=== PATIENT | male | born 1995 | race American Indian/Alaskan Native ===

== ENCOUNTER 2020-11-30 07:24 | Inpatient (IN) | payer SELFPAY ==
[2020-11-30] MEDS ORDERED: predniSONE 20 MG TAB PO ONE (09:09)
[2020-11-30] MEDS ORDERED: ALBUTEROL 2.5 MG/3 ML NEBU IH ONE (09:10)
[2020-11-30] MEDS ORDERED: IPRATROPIUM 0.02% NEBU 2.5 ML IH ONE (09:10)
--- NOTE | 2020-11-30 09:34 | Emergency Department Report ---
HPI - General Chief Complaint: Adult Asthma - HPI HPI: This is a 24-year-old -[place] male presents to the emergency department with complaint of a 2-day history of a mixed dry and productive cough, wheezing, shortness of breath. Patient says that he feels like he got a "cold" that exacerbated his asthma. He has been using his albuterol inhaler without any relief. He does not have a nebulizer machine to use. He denies any tobacco use. No recent travel or sick contacts at home. He denies any fever, chest pain, lower extremity swelling, nausea, vomiting or diaphoresis. He denies any known exposure to anyone with COVID-19. He is not vaccinated against COVID-19. ED Past Medical Hx - Past Medical History Hx Asthma: Yes - Surgical History Past Surgical History?: No ED Review of Systems ROS: Stated complaint: SOB Other details as noted in HPI Comment: All other systems reviewed and negative Constitutional: denies: chills, fever Eyes: denies: eye pain, vision change ENT: denies: ear pain, throat pain Respiratory: cough, shortness of breath, wheezing Cardiovascular: denies: chest pain, palpitations Gastrointestinal: denies: abdominal pain, vomiting Genitourinary: denies: dysuria, discharge Musculoskeletal: denies: joint swelling, arthralgia Skin: denies: rash, lesions Neurological: denies: headache, weakness Physical Exam - Physical Exam Vital Signs: Vital Signs 11/30/20 07:47 Temperature 98.4 F Pulse Rate 86 Respiratory 22 Rate Blood Pressure 143/87 O2 Sat by Pulse 91 Oximetry Physical Exam: GENERAL: The patient is well-developed well-nourished. HENT: Normocephalic. Atraumatic. Patient has moist mucous membranes. EYES: Extraocular motions are intact. NECK: Supple. Trachea is midline. CHEST/LUNGS: Moderate wheezing throughout the chest. There is tachypnea but no accessory muscle use. HEART/CARDIOVASCULAR: Regular. There is no tachycardia. There is no murmur. ABDOMEN: Abdomen is soft, nontender. Patient has normal bowel sounds. SKIN: Skin is warm and dry. NEURO: The patient is awake, alert, and oriented. The patient is cooperative. The patient has no focal neurologic deficits. Normal speech. MUSCULOSKELETAL: There is no tenderness or deformity. There is no limitation range of motion. ED Course Vital Signs 11/30/20 07:47 Temperature 98.4 F Pulse Rate 86 Respiratory 22 Rate Blood Pressure 143/87 O2 Sat by Pulse 91 Oximetry ED Medical Decision Making - Lab Data Result diagrams: 11/30/20 09:23 11/30/20 09:23 Lab Results 11/30/20 11/30/20 Range/Units 09:23 09:23 WBC 9.4 (4.5-11.0) K/mm3 RBC 5.56 H (3.65-5.03) M/mm3 Hgb 16.8 H (11.8-15.2) gm/dl Hct 49.2 H (35.5-45.6) % MCV 89 (84-94) fl MCH 30 (28-32) pg MCHC 34 (32-34) % RDW 13.9 (13.2-15.2) % Plt Count 300 (140-440) K/mm3 Lymph % (Auto) 13.1 L (13.4-35.0) % [place] % (Auto) 9.9 H (0.0-7.3) % Eos % (Auto) 7.8 H (0.0-4.3) % Baso % (Auto) 0.4 (0.0-1.8) % Lymph # (Auto) 1.2 (1.2-5.4) K/mm3 [place] # (Auto) 0.9 H (0.0-0.8) K/mm3 Eos # (Auto) 0.7 H (0.0-0.4) K/mm3 Baso # (Auto) 0.0 (0.0-0.1) K/mm3 Seg Neutrophils % 68.8 (40.0-70.0) % Seg Neutrophils # 6.4 (1.8-7.7) K/mm3 Sodium 142 (137-145) mmol/L Potassium 4.1 (3.6-5.0) mmol/L Chloride 104.0 (98-107) mmol/L Carbon Dioxide 28 (22-30) mmol/L Anion Gap 14 mmol/L BUN 10 (9-20) mg/dL Creatinine 1.0 (0.8-1.3) mg/dL Estimated GFR > 60 ml/min BUN/Creatinine Ratio 10 % Glucose 90 (75-100) mg/dL Calcium 10.0 (8.4-10.2) mg/dL - Radiology Data Radiology results: image reviewed interpreted by me: Chest x-ray does not show any acute process. There are no pleural effusions, obvious pneumonia and there is no pneumothorax. No widened mediastinum. - Medical Decision Making This patient presents with a 2-day history of some cold-like symptoms, shortness of breath, wheezing that he believes is his asthma, and the patient presents through triage with a room air pulse ox of 91%. The patient was placed on droplet precautions and patient isolation as a PUI. He was given steroids, and a prolonged breathing treatment with albuterol and Atrovent. He was given oral prednisone. Upon reevaluation the patient still sounds very tight and his room air pulse ox is now 89%. An IV was placed and the patient was given some IV fluid resuscitation and IV magnesium. Covid labs have been ordered and 2 of the inflammatory markers have come back elevated including CRP and LDH. The patient will be admitted to the hospital for further evaluation and treatment was accepted for admission by the hospitalist, Dr. Benjamin. Critical Care Time: Yes Critical care time in (mins) excluding proc time.: 31 Critical care attestation.: If time is entered above; I have spent that time in minutes in the direct care of this critically ill patient, excluding procedure time. Critical care time was spent on this patient during his initial evaluation, multiple reevaluations, ordering and interpretation of labs and imaging, supplemental oxygen for his hypoxia, breathing treatments for his bronchospasm, multiple discussions with the patient. Critical Care Time: 31 minutes ED Disposition Clinical Impression: Asthma exacerbation, Hypoxia, Suspected 2019 novel coronavirus infection Disposition: OP ADMIT IP TO THIS HOSP Is pt being admited?: Yes Condition: Serious Time of Disposition: 13:14
[2020-11-30 09:59] LABS: Basophils % (Auto) 0.4 % (0.0-1.8); Eosinophils # (Auto) 0.7 K/mm3 (0.0-0.4); Eosinophils % (Auto) 7.8 % (0.0-4.3); Hematocrit 49.2 % (35.5-45.6); Hemoglobin 16.8 gm/dl (11.8-15.2); Lymphocytes # (Auto) 1.2 K/mm3 (1.2-5.4); Lymphocytes % (Auto) 13.1 % (13.4-35.0); Mean Corpuscular HGB Conc 34 % (32-34); Mean Corpuscular Volume 89 fl (84-94); Monocytes # (Auto) 0.9 K/mm3 (0.0-0.8); Monocytes % (Auto) 9.9 % (0.0-7.3); Platelet Count 300 K/mm3 (140-440); Red Blood Count 5.56 M/mm3 (3.65-5.03); Red Cell Distribution Width 13.9 % (13.2-15.2)
--- NOTE | 2020-11-30 10:02 | XRay Report ---
CHEST 1 VIEW 11/30/2020 9:50 AM INDICATION / CLINICAL INFORMATION: SOB. COMPARISON: None available. FINDINGS: SUPPORT DEVICES: None. HEART / MEDIASTINUM: No significant abnormality. LUNGS / PLEURA: No significant pulmonary or pleural abnormality. No pneumothorax. ADDITIONAL FINDINGS: No significant additional findings. IMPRESSION: 1. No acute findings. Signer Name: Jerson Terry DO Signed: 11/30/2020 9:58 AM Workstation Name: [id number]
[2020-11-30 10:43] LABS: BUN/Creatinine Ratio 10; Blood Urea Nitrogen 10 mg/dL (9-20); Hemolysis Index 15
[2020-11-30] MEDS ORDERED: MAGNESIUM SULFATE 1 GM in SODIUM CHLORIDE 0.9% 50 ML IV ONE (11:46)
[2020-11-30] MEDS ORDERED: SODIUM CHLORIDE 0.9% 1000 ML 1,000 ML IV ONE (11:46)
--- NOTE | 2020-11-30 12:00 | History and Physical Report ---
History of Present Illness Chief complaint: I cannot stop coughing History of present illness: 24 YO Male with Asthma, HTN presents to ED for evaluation. Patient reports "I have been coughing for a week". Patient states that he has experienced generalized weakness, shortness of breath, fatigue, malaise, muscle aches over the past 1 week with progressively worsening symptoms over the same timeframe. Patient states that his symptoms have not been relieved with increased nebulizer therapy. Patient transported to [facility] via private vehicle for further care and evaluation of the aforementioned symptoms. The patient was seen and evaluated in the emergency department. All lab and imaging studies reviewed. The patient was found to have a pulse oximetry of 86% on room air which is consistent with acute hypoxemic respiratory failure. The patient also found to have clinical symptoms consistent with acute bronchitis. Patient admitted to medical floor and initiated on coronavirus protocol. Patient denies fever, chills, chest pain, palpitation, skin rash, recent ill contacts, or known exposure to COVID- 19. No prior admission for review. No medication listed at time of admission for reconciliation. He is not vaccinated against COVID-19. Past History Past Medical History: other (See HPI) Past Surgical History: No surgical history, Other (Reviewed) Social history: single. denies: smoking, alcohol abuse, prescription drug abuse Family history: diabetes, hypertension Medications and Allergies Allergies Allergy/AdvReac Type Severity Reaction Status Date / Time No Known Allergies Allergy Unverified 11/30/20 07:45 Active Meds: Active Medications Magnesium Sulfate 1 gm/ Sodium (Chloride) 52 mls @ 52 mls/hr IV ONCE ONE Stop: 11/30/20 12:45 Sodium Chloride (Nacl 0.9% 1000 Ml) 1,000 mls @ 125 mls/hr IV ONCE ONE Stop: 11/30/20 19:45 Review of Systems Constitutional: fatigue, weakness, malaise, no weight loss, no weight gain, no fever, no chills Ears, nose, mouth and throat: no ear pain, no nose pain, no nasal discharge Cardiovascular: no chest pain, no palpitations, no edema Respiratory: cough, shortness of breath, no congestion, no wheezing, no pleurisy Gastrointestinal: no nausea, no vomiting, no diarrhea, no constipation Genitourinary Male: no hematuria, no flank pain, no discharge, no urinary frequency, no urinary hesitancy Rectal: no pain, no incontinence, no bleeding Musculoskeletal: no neck stiffness, no neck pain, no shooting arm pain, no arm numbness/tingling, no low back pain, no leg numbness/tingling Integumentary: no rash, no pruritis, no sores, no wounds, no jaundice Neurological: no head injury, no paralysis, no weakness, no parathesias, no numbness, no tingling, no syncope Psychiatric: no anxiety, no memory loss, no change in sleep habits, no insomnia, no change in libido, no suicidal ideation Endocrine: no cold intolerance, no polyphagia, no polydipsia, no polyuria, no excessive sweating, no flushing Hematologic/Lymphatic: no easy bruising, no easy bleeding, no lymphadenopathy Allergic/Immunologic: no urticaria, no wheezing Exam - Constitutional Vitals: Temp Pulse Resp BP Pulse Ox 99.0 F 95 H 18 149/81 89 11/30/20 11:46 11/30/20 11:46 11/30/20 11:46 11/30/20 11:46 11/30/20 11:46 General appearance: Present: mild distress - EENT Eyes: Present: PERRL ENT: hearing intact, clear oral mucosa - Neck Neck: Present: supple, normal ROM - Respiratory Respiratory effort: normal, labored, accessory muscle use Respiratory: bilateral: diminished, rhonchi - Cardiovascular Heart Sounds: Present: S1 & S2. Absent: rub, click - Extremities Extremities: pulses symmetrical, No edema Peripheral Pulses: within normal limits - Abdominal General gastrointestinal: Present: soft, non-tender, non-distended, normal bowel sounds Male genitourinary: Present: normal - Integumentary Integumentary: Present: clear, warm, dry - Musculoskeletal Musculoskeletal: gait normal, strength equal bilaterally - Psychiatric Psychiatric: appropriate mood/affect, intact judgment & insight - Neurologic Neurologic: CNII-XII intact, moves all extremities Results - Labs CBC & Chem 7: 11/30/20 09:23 11/30/20 09:23 Labs: Abnormal lab results 11/30/20 Range/Units 09:23 RBC 5.56 H (3.65-5.03) M/mm3 Hgb 16.8 H (11.8-15.2) gm/dl Hct 49.2 H (35.5-45.6) % Lymph % (Auto) 13.1 L (13.4-35.0) % [place] % (Auto) 9.9 H (0.0-7.3) % Eos % (Auto) 7.8 H (0.0-4.3) % [place] # (Auto) 0.9 H (0.0-0.8) K/mm3 Eos # (Auto) 0.7 H (0.0-0.4) K/mm3 Assessment and Plan - Patient Problems (1) Acute hypoxemic respiratory failure Current Visit: Yes Status: Acute Plan to address problem: Chest x-ray, supplemental oxygen, pulse oximetry, nebulizer therapy, (2) Acute bronchitis Current Visit: Yes Status: Acute Qualifiers: Bronchitis organism: unspecified organism Qualified Code(s): J20.9 - Acute bronchitis, unspecified Plan to address problem: Supplemental oxygen, pulse oximetry, nebulizer therapy, IV steroid therapy, supportive care. (3) Suspected 2019 novel coronavirus infection Current Visit: Yes Status: Acute Plan to address problem: Coronavirus protocol: IV antibiotic therapy, IV steroid therapy, supplemental oxygen, pulse oximetry, nebulizer therapy, vitamin C therapy, vitamin D therapy, zinc therapy, prophylactic anticoagulation (4) DVT prophylaxis Current Visit: Yes Status: Acute Plan to address problem: SCD to bilateral lower extremities while in bed, prophylactic anticoagulation
[2020-11-30] MEDS ORDERED: ONDANSETRON 4 MG/2 ML INJ IV PRN (12:05)
[2020-11-30] MEDS ORDERED: ACETAMINOPHEN 325 MG TAB PO PRN (12:05)
[2020-11-30] MEDS ORDERED: HYDROmorphone 1 MG/1 ML INJ IV PRN (12:17)
[2020-11-30] MEDS ORDERED: oxyCODONE /ACETAMINOPHEN 5-325MG TAB PO PRN (12:17)
[2020-11-30] MEDS ORDERED: MAGNESIUM SULFATE 2 GM/50 ML BAG IV ONE (12:22)
[2020-11-30 13:08] LABS: C-Reactive Protein 4.6 mg/dL (0.00-1.30)
[2020-11-30] MEDS: ALBUTEROL 2.5 MG/3 ML NEBU IH PRN (21:15)
[2020-12-01] MEDS: FAMOTIDINE 10 MG TAB PO SCH ×3 (00:05→23:14)
[2020-12-01 06:22] LABS: Basophils # (Auto) 0.1 K/mm3 (0.0-0.1); Basophils % (Auto) 0.4 % (0.0-1.8); Eosinophils # (Auto) 0.1 K/mm3 (0.0-0.4); Eosinophils % (Auto) 0.6 % (0.0-4.3); Hematocrit 46.5 % (35.5-45.6); Hemoglobin 15.6 gm/dl (11.8-15.2); Lymphocytes # (Auto) 1.4 K/mm3 (1.2-5.4); Lymphocytes % (Auto) 9.5 % (13.4-35.0); Mean Corpuscular HGB Conc 34 % (32-34); Mean Corpuscular Volume 88 fl (84-94); Monocytes # (Auto) 1.4 K/mm3 (0.0-0.8); Monocytes % (Auto) 9.6 % (0.0-7.3); Platelet Count 313 K/mm3 (140-440); Red Cell Distribution Width 14.2 % (13.2-15.2)
[2020-12-01 06:46] LABS: Alanine Aminotransferase 20 units/L (7-56); Albumin 4.7 g/dL (3.9-5); BUN/Creatinine Ratio 7; Blood Urea Nitrogen 7 mg/dL (9-20); Calcium 9.8 mg/dL (8.4-10.2); Hemolysis Index 13
--- NOTE | 2020-12-01 09:43 | Progress Note ---
Assessment and Plan Assessment and plan: Acute hypoxic respiratory failure Acute bronchitis Suspected COVID-19 infection DVT prophylaxis 12/01/2020. Start Solu-Medrol 40 mg IV every 8 hours for now. Await Covid testing. Start empiric antibiotics for bronchitis. Follow-up inflammatory markers. Consider ID consultation O2 supplementation to maintain sats greater than 92% History Interval history: No new issues overnight. Hospitalist Physical - Constitutional Vitals: Temp Pulse Resp BP Pulse Ox 99.0 F 95 H 18 149/81 89 11/30/20 11:46 11/30/20 11:46 11/30/20 11:46 11/30/20 11:46 11/30/20 11:46 General appearance: Present: mild distress - EENT Eyes: Present: PERRL, EOM intact ENT: hearing intact, clear oral mucosa, dentition normal - Neck Neck: Present: supple, normal ROM - Respiratory Respiratory effort: normal Respiratory: bilateral: CTA - Cardiovascular Rhythm: regular Heart Sounds: Present: S1 & S2. Absent: gallop, rub - Extremities Extremities: no ischemia, No edema, Full ROM - Abdominal General gastrointestinal: soft, non-tender, non-distended, normal bowel sounds - Integumentary Integumentary: Present: clear, warm, dry - Neurologic Neurologic: CNII-XII intact, moves all extremities Results - Labs CBC & Chem 7: 12/01/20 05:14 12/01/20 05:14 Labs: Laboratory Last Values WBC 14.8 K/mm3 (4.5-11.0) H 12/01/20 05:14 RBC 5.30 M/mm3 (3.65-5.03) H 12/01/20 05:14 Hgb 15.6 gm/dl (11.8-15.2) H 12/01/20 05:14 Hct 46.5 % (35.5-45.6) H 12/01/20 05:14 MCV 88 fl (84-94) 12/01/20 05:14 MCH 29 pg (28-32) 12/01/20 05:14 MCHC 34 % (32-34) 12/01/20 05:14 RDW 14.2 % (13.2-15.2) 12/01/20 05:14 Plt Count 313 K/mm3 (140-440) 12/01/20 05:14 Lymph % (Auto) 9.5 % (13.4-35.0) L 12/01/20 05:14 [place] % (Auto) 9.6 % (0.0-7.3) H 12/01/20 05:14 Eos % (Auto) 0.6 % (0.0-4.3) 12/01/20 05:14 Baso % (Auto) 0.4 % (0.0-1.8) 12/01/20 05:14 Lymph # (Auto) 1.4 K/mm3 (1.2-5.4) 12/01/20 05:14 [place] # (Auto) 1.4 K/mm3 (0.0-0.8) H 12/01/20 05:14 Eos # (Auto) 0.1 K/mm3 (0.0-0.4) 12/01/20 05:14 Baso # (Auto) 0.1 K/mm3 (0.0-0.1) 12/01/20 05:14 Seg Neutrophils % 79.9 % (40.0-70.0) H 12/01/20 05:14 Seg Neutrophils # 11.9 K/mm3 (1.8-7.7) H 12/01/20 05:14 D-Dimer < 135.00 ng/mlDDU (0-234) 11/30/20 12:07 Sodium 141 mmol/L (137-145) 12/01/20 05:14 Potassium 4.4 mmol/L (3.6-5.0) 12/01/20 05:14 Chloride 101.3 mmol/L (98-107) 12/01/20 05:14 Carbon Dioxide 26 mmol/L (22-30) 12/01/20 05:14 Anion Gap 18 mmol/L 12/01/20 05:14 BUN 7 mg/dL (9-20) L 12/01/20 05:14 Creatinine 1.0 mg/dL (0.8-1.3) 12/01/20 05:14 Estimated GFR > 60 ml/min 12/01/20 05:14 BUN/Creatinine Ratio 7 % 12/01/20 05:14 Glucose 112 mg/dL (75-100) H 12/01/20 05:14 Calcium 9.8 mg/dL (8.4-10.2) 12/01/20 05:14 Ferritin 286.1 ng/mL (30.0-300.0) 11/30/20 12:07 Total Bilirubin 0.60 mg/dL (0.1-1.2) 12/01/20 05:14 AST 20 units/L (5-40) 12/01/20 05:14 ALT 20 units/L (7-56) 12/01/20 05:14 Alkaline Phosphatase 81 units/L (35-129) 12/01/20 05:14 Lactate Dehydrogenase 235 units/L (91-180) H 11/30/20 12:07 C-Reactive Protein 4.60 mg/dL (0.00-1.30) H 11/30/20 12:07 Total Protein 7.1 g/dL (6.3-8.2) 12/01/20 05:14 Albumin 4.7 g/dL (3.9-5) 12/01/20 05:14 Albumin/Globulin Ratio 2.0 % 12/01/20 05:14 Procalcitonin 0.07 ng/mL (<0.15) 11/30/20 12:07 Active Medications - Current Medications Current Medications: Generic Name Dose Route Start Last Admin Trade Name Freq PRN Reason Stop Dose Admin Acetaminophen 650 mg 11/30/20 12:05 Acetaminophen 325 Mg Tab PO Q4H PRN Pain MILD(1-3)/Fever >100.5/CHAVEZ Albuterol 2.5 mg 11/30/20 12:05 11/30/20 21:15 Albuterol 2.5 Mg/3 Ml Nebu IH 2.5 mg Q4HRT PRN Administration Shortness Of Breath Famotidine 10 mg 11/30/20 22:00 12/01/20 00:05 Famotidine 10 Mg Tab PO 10 mg BID BETTY Administration Hydromorphone HCl 0.5 mg 11/30/20 12:17 Hydromorphone 1 Mg/1 Ml Inj IV Q12H PRN Pain , Severe (7-10) Ondansetron HCl 4 mg 11/30/20 12:05 Ondansetron 4 Mg/2 Ml Inj IV Q8H PRN Nausea And Vomiting Oxycodone/Acetaminophen 1 tab 11/30/20 12:17 Oxycodone /Acetaminophen 5-325mg Tab PO Q12H PRN Pain, Moderate (4-6) Sodium Chloride 10 ml 11/30/20 22:00 12/01/20 00:05 Sodium Chloride 0.9% 10 Ml Flush Syringe IV 10 ml BID BETTY Administration Sodium Chloride 10 ml 11/30/20 12:05 Sodium Chloride 0.9% 10 Ml Flush Syringe IV PRN PRN LINE FLUSH
[2020-12-01] MEDS ORDERED: cefTRIAXone/NS 1 GM/50 ML 1 GM/50 ML BAG IV SCH (10:00)
[2020-12-01] MEDS: cefTRIAXone/NS 2 GM/100 ML 2 GM/100 ML BAG IV SCH (12:38)
[2020-12-01] MEDS: methylPREDNISolone Sod Succinate 40 MG/1 ML INJ IV SCH ×2 (13:52→23:14)
[2020-12-02 05:09] LABS: BUN/Creatinine Ratio 11; Blood Urea Nitrogen 10 mg/dL (9-20); Calcium 9.2 mg/dL (8.4-10.2); Hemolysis Index 22
[2020-12-02] MEDS: methylPREDNISolone Sod Succinate 40 MG/1 ML INJ IV SCH ×2 (05:36→13:13)
[2020-12-02 05:45] LABS: Basophils % (Auto) 0.2 % (0.0-1.8); Hematocrit 46.1 % (35.5-45.6); Hemoglobin 15.4 gm/dl (11.8-15.2); Lymphocytes # (Auto) 0.9 K/mm3 (1.2-5.4); Lymphocytes % (Auto) 7.2 % (13.4-35.0); Mean Corpuscular HGB Conc 33 % (32-34); Mean Corpuscular Volume 87 fl (84-94); Monocytes # (Auto) 0.5 K/mm3 (0.0-0.8); Monocytes % (Auto) 3.9 % (0.0-7.3); Platelet Count 366 K/mm3 (140-440); Red Blood Count 5.31 M/mm3 (3.65-5.03)
[2020-12-02] MEDS: ALBUTEROL 2.5 MG/3 ML NEBU IH PRN (05:53)
--- NOTE | 2020-12-02 08:08 | Discharge Summary ---
Providers - Providers Date of Admission: 11/30/20 12:05 Date of discharge: 12/02/20 Attending physician: WANDA MANCILLA Primary care physician: [facility] Hospitalization Reason for admission: sob Condition: Serious Hospital course: 24 YO Male with Asthma, HTN presents to ED for evaluation of generalized weakness, shortness of breath, fatigue, malaise, muscle aches over the past 1 week with progressively worsening symptoms over the same timeframe. Patient stated that his symptoms did not improve with increased nebulizer therapy. Andrea grewal transported to [facility] via private vehicle for further care and evaluation of the aforementioned symptoms. The patient was seen and evaluated in the emergency department. All lab and imaging studies reviewed. The patient was found to have a pulse oximetry of 86% on room air. The patient was admitted with diagnosis of acute hypoxemic respiratory failure secondary to acute asthma exacerbation and suspected COVID-19 pneumonia. The patient was treated with oxygen supplementation, bronchodilators/nebulizers and IV steroids. Patient had COVID-19 PCR that was found to be negative and chest x-ray that was negative with no evidence of pneumonia. Patient has significant improvement in respiratory failure and return back to baseline respiratory status. Patient is felt to receive maximal hospital benefit and will be discharged home. Dedicated discharge time 35 minutes. Disposition: DC-01 TO HOME OR SELFCARE Final Discharge Diagnosis (Prints w/discharge instructions): Acute hypoxic respiratory failure, acute asthma exacerbation Core Measure Documentation - Palliative Care Palliative Care/ Comfort Measures: Not Applicable - Core Measures Any of the following diagnoses?: none Exam - Constitutional Vitals: Temp Pulse Resp BP Pulse Ox 99.6 F 90 22 114/70 91 12/02/20 04:42 12/02/20 05:53 12/02/20 05:53 12/02/20 04:42 12/02/20 04:42 General appearance: Present: no acute distress, well-nourished - EENT Eyes: Present: PERRL ENT: hearing intact, clear oral mucosa - Neck Neck: Present: supple, normal ROM - Respiratory Respiratory effort: normal Respiratory: bilateral: CTA - Cardiovascular Heart Sounds: Present: S1 & S2. Absent: rub, click - Extremities Extremities: pulses symmetrical, No edema Peripheral Pulses: within normal limits - Abdominal General gastrointestinal: Present: soft, non-tender, non-distended, normal bowel sounds Male genitourinary: Present: normal - Integumentary Integumentary: Present: clear, warm, dry - Musculoskeletal Musculoskeletal: gait normal, strength equal bilaterally - Psychiatric Psychiatric: appropriate mood/affect, intact judgment & insight - Neurologic Neurologic: CNII-XII intact, moves all extremities Plan Activity: advance as tolerated Weight Bearing Status: Weight Bear as Tolerated Diet: regular Follow up with: PRIMARY CARE,MD [Primary Care Provider] - 7 Days Prescriptions: ALBUTEROL NEB's 90 mcg IH BID 30 Days Prednisone [predniSONE 10 mg (6-Day Pack, 21 Tabs)] 10 mg PO .TAPER #1 tab.ds.pk
[2020-12-02] MEDS: FAMOTIDINE 10 MG TAB PO SCH (09:01)
[2020-12-02] MEDS: cefTRIAXone/NS 2 GM/100 ML 2 GM/100 ML BAG IV SCH (13:13)
[2020-12-02 15:31] VITALS: BP 140/79
== END 2020-12-02 14:20 | disposition home or self-care (01) | DRG 189 ==
LOC: ED 07:24 → 3A 12:05
PROVIDERS: ADMIT Internal Medicine; ATTEND Hospitalist
DX: J96.01 Acute respiratory failure with hypoxia (principal); J45.901 Unspecified asthma with (acute) exacerbation; J20.9 Acute bronchitis, unspecified; I10 Essential (primary) hypertension; Z82.49 Family history of ischemic heart disease and other diseases of the circulatory system; Z20.822 Contact with and (suspected) exposure to COVID-19; Z83.3 Family history of diabetes mellitus
CPT/HCPCS: 36415; 71045; 80048; 80053; 82728; 83615; 84145; 85025; 85379; 86140; 94640; 99291; G0378; J0696; J2920; J3475; J7030; J7512; U0003